=== PATIENT | female | born 1995 | race Caucasian/White ===

== ENCOUNTER 2017-05-14 01:10 | Emergency (ER) | payer OTHER ==
[~2017-05-14] VITALS: Ht 157.5 cm; Wt 58.6 kg
--- NOTE | 2017-05-14 01:14 | EMERGENCY ROOM VISIT NOTE ---
History Report prepared by Dasia: Dominique Neely Under the Supervision of: Dr. Isidoro Vasquez M.D. First contact with patient: 01:11 Stated Complaint: ALCOHOL History of Present Illness The patient is a 21 year old female who presents to the Emergency Room with complaints of an alcohol overdose occurring shortly prior to arrival. Per EMS, the patient was found at [address]. Limited HPI secondary to intoxication. Source of History: EMS History Limited By: intoxication Onset: shortly prior to arrival Review of Systems Limited ROS secondary to intoxication. Past Medical & Surgical Unable to obtain medical history sheet secondary to intoxication. Family History Unable to obtain medical history sheet secondary to intoxication. Social History Unable to obtain medical history sheet secondary to intoxication. Current/Historical Medications No Active Prescriptions or Reported Meds Allergies Coded Allergies: No Known Allergies (Unverified , 05/14/17) Physical Exam Vital Signs Date Time Temp Pulse Resp B/P (MAP) Pulse Ox O2 Delivery O2 Flow Rate FiO2 05/14/17 07:05 88 20 92/45 100 05/14/17 06:05 85 96 Room Air 05/14/17 06:01 82/44 05/14/17 05:35 82 97 Room Air 05/14/17 05:30 86 97 Room Air 05/14/17 05:24 85 05/14/17 05:01 90/44 05/14/17 05:00 91 18 97 Room Air 05/14/17 04:30 99 18 93 Room Air 05/14/17 04:01 87/43 05/14/17 04:00 87 19 95 Room Air 05/14/17 03:30 91 20 96 Room Air 05/14/17 03:01 96 18 92/60 96 05/14/17 01:30 113 05/14/17 01:22 36.6 108 18 102/72 95 Room Air Physical Exam GENERAL: Patient is heavily intoxicated. Smells of alcohol. Well appearing and in no acute distress. Dry vomit on shirt. HEAD: No evidence of Trauma. AT/NC EYES: Injected conjunctiva. Normal EOM. Pupils equal/reactive. ENT: Mucous membranes moist, no nasal congestion, . NECK: No step-offs, no adenopathy, no meningismus, trachea is midline. LUNGS: No dyspnea. Clear to auscultation and equal bilaterally. No wheeze, no rhonchi. HEART: Regular rate and rhythm. No murmurs, rubs, gallops appreciated. ABDOMEN: Soft, nontender, bowel sounds positive, no masses appreciated, no peritonitis. BACK: No midline tenderness, no CVA tenderness EXTREMITIES: Normal motion all extremities, no cyanosis, no edema. NEUROLOGIC: Intoxicated. Obtunded . No acute motor or sensory deficits, no focal weakness, cranial nerves grossly intact. SKIN: No rash, no jaundice, no diaphoresis. Medical Decision & Procedures Laboratory Results 05/14/17 01:41 Test 05/14/17 01:41 Anion Gap 9.0 mmol/L (3-11) Est Creatinine Clear Calc Drug Dose 97.0 ml/min Estimated GFR () 137.8 Estimated GFR (Non- 118.9 BUN/Creatinine Ratio 16.3 (10-20) Calcium Level 8.2 mg/dl (8.5-10.1) Human Chorionic Gonadotropin, Qual NEG (NEG) Ethyl Alcohol mg/dL 236.0 mg/dl (0-3) Laboratory results as reviewed by me. ED Course 0010: The patient was evaluated in room A11. A complete history and physical exam was performed. 0240: The patient is stable. Medical Decision Differential: Alcohol Intoxication, Drug Intoxication, Electrolyte Abnormality, Trauma, Intracranial Event, Toxicological, Excited Delirium, Serotonin Syndrome , amongst other pathologies entertained. 21 yr old intoxicated female brought in by EMS after being found intoxicated in stairwell with friends. Patient with no evidence nor history for trauma. Did vomit prior to arrival though is protecting airway and breathing comfortably throughout ED stay. EtOH positive. In am up and walking around. Denies any pain/trauma nor other concerns. Very much wishes to go home. Made aware of evenings events and that police were involved. Monitored and discharged when awake, alert, oriented and denies any complaints. Medication Reconcilliation Current Medication List: was personally reviewed by me Blood Pressure Screening Patient's blood pressure: Normal blood pressure Impression Primary Impression: Alcohol use with intoxication Additional Impression: Vomiting Scribe Attestation The scribe's documentation has been prepared under my direction and personally reviewed by me in its entirety. I confirm that the note above accurately reflects all work, treatment, procedures, and medical decision making performed by me. Departure Information Dispostion Home / Self-Care Prescriptions No Active Prescriptions or Reported Meds Patient Instructions Alcohol Intoxication - [facility], My [facility] [address] Additional Instructions You were evaluated in emergency department for intoxication. This is a sign of Alcohol Abuse and should not be taken lightly. You had a blood alcohol level that was significantly elevated. Over the next 24 hours keep well hydrated and eat light meals. Don't drink any more alcohol. This is important. Please discuss this visit with your Primary Care Provider, [facility] and/or your loved ones. Unless an exceptional circumstance, the Hospital DOES NOT contact anyone DURING your visit, nor is your Protected Medical Information released to anyone without your approval/request. This means we do not contact your Parents, the Police, etc. However, you will likely receive a bill from the Hospital and/or your Insurance company, which will usually be sent to the Primary Policy [place] (often one's Parents). If the Police were involved you will likely be cited for public intoxication. Please contact either [place] Police for further information. Call 911 or return to Emergency Department if you develop: Passing out, difficulty breathing, many episodes of vomiting, blood in vomit or stool, abdominal pain, fevers, or other severe symptoms. We are always here to help if you feel you need further evaluation or treatment. Problem Qualifiers
[2017-05-14 01:22] VITALS: TEMP 36.6; Ht 157.5 cm; Wt 58.6 kg
[2017-05-14 02:19] LABS: BUN/CREATININE RATIO 16.3 (10-20); CALCIUM 8.2 mg/dl (8.5-10.1); CREATININE 0.72 mg/dl (0.60-1.20); POTASSIUM 3.6 mmol/L (3.5-5.1)
[2017-05-14 02:31] LABS: PREG INTERNAL NEGATIVE QC NEG CLEAR BACKGROUND; PREG INTERNAL POSITIVE QC POS CONTROL LINE
[2017-05-14 07:05] VITALS: BP 92/45; PULSE 88; O2SAT 100
== END 2017-05-14 07:19 | disposition home or self-care (01) ==
LOC: EDBD 01:10 → C.EDA 01:12
DX: F10.929 Alcohol use, unspecified with intoxication, unspecified (principal); R11.10 Vomiting, unspecified